=== PATIENT | female | born 1950 | race Caucasian/White ===

== ENCOUNTER 2024-02-03 17:41 | Emergency (ER) | payer MEDICARE, MEDICAID, SELFPAY ==
[2024-02-03] VITALS (11 sets, daily range): BP systolic 95–111; BP diastolic 61–74; PULSE 83–89; O2SAT 88–97; BMI 29.1
--- NOTE | 2024-02-03 17:48 | ECG_ITS ---
[facility] Test Date: 2024-02-03 Pat Name: SPENCER REYES Department: Room: - Gender: Female Telephone Technician: : 1950 Requested By: Order Number: [id number] Reading MD: SVETA IVEY Measurements Intervals [place] Rate: 85 P: 38 MD: 156 QRS: 69 QRSD: 74 T: 66 QT: 370 QTc: 412 Interpretive Statements 1100 Sinus rhythm 9110 normal ECG No previous ECG available for comparison Electronically Signed On 02-04-2024 7:43:25 EST by SVETA IVEY
[2024-02-03 17:52] LABS: Glucometer 135 mg/dL (74-106)
--- NOTE | 2024-02-03 17:57 | ED.DIZZY1 ---
HPI - Dizziness General Chief Complaint: Syncope Stated Complaint: SYNCOPY Time Seen by Provider: 02/03/24 17:47 Source: patient Mode of arrival: ambulance History of Present Illness HPI Narrative: The patient is coming to us with dizziness at the main concern apparently she just smoked some weed which she shared with her family for the first time, patient started having dizziness after that and apparently had 1 episode of vomiting after eating Patient denying any chest pain, she denies being sick before this happened and she was having no complaint during the day Related Data Allergies Allergy/AdvReac Type Severity Reaction Status Date / Time vancomycin AdvReac Severe Rash Verified 02/03/24 17:48 Review of Systems ROS Status of ROS 10 or more systems reviewed and unremarkable except as noted in history and below Exam Narrative Exam Narrative: Nurses notes and vital signs reviewed and patient is not hypoxic. General: Well-appearing and in no apparent distress. smell of Marijuana and dizzy closing her eyes Skin: Warm, dry, no pallor noted. No rash. Head: Normocephalic, atraumatic. Neck: Supple, non-tender. Eye: Pupils are equal, round and EOMI. No scleral icterus. Ears, Nose, Mouth, and Throat: TM are clear, no nasal mucosal hypertrophy. Oral mucosa is moist, no posterior oropharynx erythema, uvula is mid-line Cardiovascular: Regular Rate and Rhythm without murmur, gallop or rub. Respiratory: No accessory muscle use or respiratory distress. Lungs are clear to auscultation, no wheezing, rales or rhonchi Chest Wall: no tenderness Back: No midline thoracic or lumbar vertebral tenderness. No CVA tenderness Musculoskeletal: normal ROM, no calf or popliteal tenderness, no lower extremity edema/swelling GI: Abdomen is soft, non-distended. Normal bowel sounds. No masses appreciated. No tenderness to palpation. No rebound, guarding, or rigidity noted. Neurological: A&O x4. No cranial nerve dysfunction observed. No truncal ataxia. Moves all extremities. Sensation intact. Psychiatric: Cooperative and interactive. Normal mood and affect. Constitutional Vital Signs, click to edit/add: Last Vital Signs Pulse 83 02/03/24 18:10 Resp 18 02/03/24 18:10 BP 95/65 02/03/24 18:04 Pulse Ox 88 L 02/03/24 18:16 O2 Del Method Room Air 02/03/24 18:16 O2 Flow Rate 2 02/03/24 18:16 Course Vital Signs Vital signs: Vital Signs Pulse Rate 88 02/03/24 17:45 Respiratory Rate 14 02/03/24 17:45 Blood Pressure 111/74 02/03/24 17:45 Pulse Oximetry 92 L 02/03/24 17:45 Oxygen Delivery Method Room Air 02/03/24 17:45 Pulse Rate 83 02/03/24 18:10 Respiratory Rate 18 02/03/24 18:10 Blood Pressure 95/65 02/03/24 18:04 Pulse Oximetry 88 L 02/03/24 18:16 Oxygen Delivery Method Room Air 02/03/24 18:16 Oxygen Delivery Flow Rate 2 02/03/24 18:16 MDM - Dizziness MDM Narrative Medical decision making narrative: Upon arrival the patient EKG showing sinus rhythm with a heart rate of [address] elevation or depression The patient presentation is mostly secondary to the effect of the marijuana the patient just smoked marijuana when this happened and this is the first time that she smoked marijuana The patient is feeling dizzy as she did not have an actual syncopal episodes she just holding her eyes and apparently she did not even have a fall because she was in the chair when this happened The patient CBC shows some leukocytosis which could be reactive due to the patient vomiting before arrival She also had no source of infection before smoking marijuana And the patient also had chemistry showing mild acute kidney injury the patient was given IV fluid here at least 1 L Right now awaiting the drug screen and ethanol level The patient right now is being monitored awaiting improvement more --pt feeling better ---pt care transferred at the end of shift Lab Data Labs: Lab Results 02/03/24 02/03/24 Range/Units 17:50 17:51 WBC 14.3 H (4.0-11.0) 10^3/uL RBC 4.03 L (4.20-5.40) 10^6/uL Hgb 12.7 (12.0-16.0) g/dL Hct 38.7 (36.0-48.0) % MCV 96.0 (81.0-99.0) fL MCH 31.5 (26.7-34.0) pg MCHC 32.8 (29.9-35.2) g/dL RDW 14.0 (11.0-15.0) % Plt Count 257 (150-450) 10^3/uL MPV 10.1 (9.5-13.5) fL Neut % (Auto) 59.1 (43.0-75.0) % Lymph % (Auto) 30.5 (20.5-60.0) % [place] % (Auto) 8.4 (1.7-12.0) % Eos % (Auto) 0.8 L (0.9-7.0) % Baso % (Auto) 0.7 (0.2-2.0) % Neut # (Auto) 8.5 H (1.4-6.5) 10^3/uL Lymph # (Auto) 4.4 H (1.2-3.8) 10^3/uL [place] # (Auto) 1.2 H (0.3-0.8) 10^3/uL Eos # (Auto) 0.1 (0.0-0.7) 10^3/uL Baso # (Auto) 0.1 (0.0-0.1) 10^3/uL Abs Immat Gran (auto) 0.07 H (0.00-0.03) 10^3/uL Imm/Tot Granulo (auto) 0.5 (0.0-0.5) % Sodium 143 (136-145) mmol/L Potassium 4.0 (3.5-5.1) mmol/L Chloride 107 (98-107) mmol/L Carbon Dioxide 24.5 (21.0-32.0) mmol/L Anion Gap 15.5 BUN 24.0 H (7.0-18.0) mg/dL Creatinine 1.19 H (0.55-1.02) mg/dL Est GFR ( Amer) 54 L (>=60 mL/min/1.73m^2) Est GFR (Non-Af Amer) 45 L (>=60 mL/min/1.73m^2) BUN/Creatinine Ratio 20.2 Glucose 131 H (74-106) mg/dL Calcium 8.7 (8.5-10.1) mg/dL Total Bilirubin 0.4 (0.2-1.0) mg/dL AST 16 (15-37) U/L ALT 19 (14-59) U/L Alkaline Phosphatase 77 (46-116) U/L Troponin I High Sens 4.5 (4.0-51.3) pg/mL Total Protein 6.6 (6.4-8.2) g/dL Albumin 3.4 (3.4-5.0) g/dL Globulin 3.2 g/dL Albumin/Globulin Ratio 1.1 POC Glucose 135 H (74-106) mg/dL Discharge Plan Discharge Patient Disposition: Still a Patient
[2024-02-03 18:00] LABS: Basophils Absolute Auto 0.1 10^3/uL (0.0-0.1); Basophils Percent Auto 0.7 % (0.2-2.0); Eosinophils Absolute Auto 0.1 10^3/uL (0.0-0.7); Eosinophils Percent Auto 0.8 % (0.9-7.0); Hematocrit 38.7 % (36.0-48.0); Hemoglobin 12.7 g/dL (12.0-16.0); Immature Granulocytes Abs Auto 0.07 10^3/uL (0.00-0.03); Immature Granulocytes Pct Auto 0.5 % (0.0-0.5); Lymphocytes Absolute Auto 4.4 10^3/uL (1.2-3.8); Lymphocytes Percent Auto 30.5 % (20.5-60.0); Mean Corpuscular HGB Conc 32.8 g/dL (29.9-35.2); Mean Corpuscular Hemoglobin 31.5 pg (26.7-34.0); Mean Platelet Volume 10.1 fL (9.5-13.5); Monocytes Absolute Auto 1.2 10^3/uL (0.3-0.8); Monocytes Percent Auto 8.4 % (1.7-12.0); Neutrophils Absolute Auto 8.5 10^3/uL (1.4-6.5); Neutrophils Percent Auto 59.1 % (43.0-75.0); Platelet Count 257 10^3/uL (150-450); Red Blood Count 4.03 10^6/uL (4.20-5.40); White Blood Count 14.3 10^3/uL (4.0-11.0)
[2024-02-03] MEDS: 0.9 % SODIUM CHLORIDE 1,000 ML 1000 ML IV (18:10)
[2024-02-03] MEDS: ONDANSETRON PF 4 MG/2 ML VIAL IV (18:10)
--- NOTE | 2024-02-03 18:17 | PC.NURSE ---
pt O2 Sat dropped to 88% on RA. pt placed on 2L of O2 per NC. O2 Sat up to 97%.
[2024-02-03 18:23] LABS: Alanine Aminotransferase 19 U/L (14-59); Albumin Globulin Ratio 1.1; Albumin Level 3.4 g/dL (3.4-5.0); Alkaline Phosphatase 77 U/L (46-116); Anion Gap 15.5; Aspartate Amino Transferase 16 U/L (15-37); BUN Creatinine Ratio 20.2; Bilirubin Total 0.4 mg/dL (0.2-1.0); Calcium 8.7 mg/dL (8.5-10.1); Carbon Dioxide 24.5 mmol/L (21.0-32.0); Chloride 107 mmol/L (98-107); Estimated GFR (African America 54 (>=60 mL/min/1.73m^2); Estimated GFR (Non-African Ame 45 (>=60 mL/min/1.73m^2); Globulin 3.2 g/dL; Glucose 131 mg/dL (74-106); Sodium 143 mmol/L (136-145); Total Protein 6.6 g/dL (6.4-8.2)
[2024-02-03 18:36] LABS: Troponin I High Sensitivity 4.5 pg/mL (4.0-51.3)
[2024-02-03 18:49] LABS: Ethanol <3 mg/dL
== END 2024-02-03 18:59 | disposition home or self-care (01) ==
PROVIDERS: Emergency Provider Emergency Medicine; PCP Family Medicine
DX: F12.90 Cannabis use, unspecified, uncomplicated (principal); R42 Dizziness and giddiness
CPT/HCPCS: 36415; 80053; 80307; 80320; 84484; 85025; 93005; 96361; 96374; 99285; J2405